=== PATIENT | male | born 1995 | race Caucasian/White ===

== ENCOUNTER 2018-12-12 13:28 | Emergency (ER) | payer OTHER ==
[~2018-12-12] VITALS: Ht 175.3 cm; Wt 70.3 kg
[2018-12-12 13:53] VITALS: BP 119/62
[2018-12-12] MEDS ORDERED: ACETAMINOPHEN 325 MG TABLET PO ONE (14:00)
[2018-12-12] MEDS ORDERED: IBUPROFEN 600 MG TABLET PO ONE ×2 (14:00→14:01)
[2018-12-12] MEDS ORDERED: ACETAMINOPHEN 325 MG TABLET ONE (14:01)
== END 2018-12-12 14:30 ==
LOC: ER 13:32
DX: S00.03XA Contusion of scalp, initial encounter (principal); S60.221A Contusion of right hand, initial encounter; S00.11XA Contusion of right eyelid and periocular area, initial encounter; Y04.0XXA Assault by unarmed brawl or fight, initial encounter; Y93.89 Activity, other specified; Y92.89 Other specified places as the place of occurrence of the external cause; Y99.8 Other external cause status
CPT/HCPCS: 73130-TC

== ENCOUNTER 2019-07-21 15:22 | Emergency (ER) | payer OTHER ==
[~2019-07-21] VITALS: Ht 152.4 cm; Wt 74.8 kg
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
--- NOTE | 2019-07-21 16:39 | NUR ---
Patient discharged to home in stable condition. Written and verbal after care instructions given. Patient verbalizes understanding of instruction. Pt provided with xray copies. Pt okay to book. pt ambulatory with a steady gait.
[2019-07-21 16:41] VITALS: BP 124/76
== END 2019-07-21 16:52 ==
LOC: ER 15:25
DX: S63.8X1A Sprain of other part of right wrist and hand, initial encounter (principal); S60.512A Abrasion of left hand, initial encounter; Y04.0XXA Assault by unarmed brawl or fight, initial encounter; Y93.89 Activity, other specified; Y92.89 Other specified places as the place of occurrence of the external cause; Y99.8 Other external cause status
CPT/HCPCS: 73130-TC